=== PATIENT | male | born 1965 ===

== ENCOUNTER 2023-09-15 10:24 | Emergency (ER) | payer OTHER, SELFPAY ==
[2023-09-15 10:24] VITALS: BP 178/116; PULSE 103; RESP 16; TEMP 36.6; O2SAT 98
--- NOTE | 2023-09-15 11:02 | ED_ITS ---
HPI - Dental/Oral General Chief complaint: Dental/Oral Stated complaint: tooth problems Time Seen by Provider: 09/15/23 10:35 Source: patient Mode of arrival: ambulatory Limitations: no limitations History of Present Illness HPI Narrative: DENTAL PAIN FOR YEARS SINCE 2016, GOT WORSE OVER THE LAST 2 WEEKS. HE DENIES ANY FEVER, CHILLS, DIFFICULTY SWALLOWING OR BREATHING OR HEADACHE OR SWELLING. IS SCHEDULED TO SEE A DENTIST NOVEMBER 2023 Related Data Allergies Allergy/AdvReac Type Severity Reaction Status Date / Time Penicillins Allergy Unknown Verified 06/05/11 11:03 Review of Systems Review of Systems: All systems reviewed & are unremarkable except as noted in HPI and below PMFSH Family History Family History Mother Family history of arthritis Other Family history of rheumatoid arthritis Social History Social History Smoking status: Former smoker Smoking end date: 07/09/16 Alcohol intake: never Exam Narrative: GENERAL APPEARANCE: WELL-DEVELOPED, WELL-NOURISHED SKIN: NORMAL COLOR HEAD: NORMOCEPHALIC, NONTRAUMATIC EYES: CLEAR CONJUNCTIVA ENT: OROPHARYNX NORMAL, EARS NORMAL, NOSE NORMAL, WIDESPREAD DENTAL DECAY BILATERALLY, UPPER AND LOWER SIDE NECK: SUPPLE, NONTENDER MUSCULOSKELETAL: NORMAL RANGE OF MOTION, NONTENDER BACK NEUROLOGIC: ALERT AND ORIENTED ?3, 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 OPERATOR IS 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 TESTED, NO GROSS MOTOR DEFICIT Course Vital Signs Vital signs: Vital Signs Temperature 36.6 C 09/15/23 10:24 Pulse Rate 103 H 09/15/23 10:24 Respiratory Rate 16 09/15/23 10:24 Blood Pressure 178/116 H 09/15/23 10:24 Pulse Oximetry 98 09/15/23 10:24 Temperature 36.6 C 09/15/23 10:24 Pulse Rate 103 H 09/15/23 10:24 Respiratory Rate 16 09/15/23 10:24 Blood Pressure 178/116 H 09/15/23 10:24 Pulse Oximetry 98 09/15/23 10:24 MDM - Dental/Oral MDM Narrative Medical decision making narrative: EXTENSIVE DENTAL DECAY, NO ABSCESS FORMATION, DISCHARGED ON CLINDAMYCIN TO FOLLOW-UP WITH HIS DENTIST SOON POSSIBLE Critical Care Time Critical Care Time Critical Care Time: No Discharge Plan Discharge Clinical Impression: Dental caries Patient Disposition: Home, Self-Care Condition: Stable Instructions: Antibiotic Form, Toothache (ED) Additional Instructions: RETURN IF SYMPTOMS ARE WORSENING , CALL YOUR DENTIST FOR APPOINTMENT, TAKE TYLENOL NEEDED FOR ACHES AND PAIN, CONTINUE HOME MEDICATIONS. Prescriptions: New clindamycin HCl 300 mg capsule 300 mg PO Q6H Qty: 40 0RF Follow-up/Referrals: Sarina,Michell Elliott APRN [Primary Care Provider] - Stand Alone Forms: Work/School Release IP
[2023-09-15 11:24] VITALS: BP 170/80; PULSE 86; RESP 16; O2SAT 97
== END 2023-09-15 11:28 | disposition home or self-care (01) ==
PROVIDERS: Emergency Provider Emergency Medicine; PCP Nurse Practitioner
DX: K02.9 Dental caries, unspecified (principal); Z87.891 Personal history of nicotine dependence
CPT/HCPCS: 99283